=== PATIENT | female | born 1945 | race Caucasian/White ===

== ENCOUNTER 2019-02-14 06:36 | Day surgery (SDC) | payer MEDICARE, OTHER ==
[2019-02-14] MEDS ORDERED: fentaNYL 100 MCG/2 ML SDV ONE (07:53)
[2019-02-14] MEDS ORDERED: Propofol 200 MG/20 ML SDV ONE (07:53)
[2019-02-14] MEDS ORDERED: Midazolam 1 MG/ML 2 ML SDV ONE (07:53)
[2019-02-14] MEDS ORDERED: Sodium Chloride 0.9% 1,000 ML IV SCH (08:00)
[2019-02-14] MEDS ORDERED: Glycopyrrolate 0.2 MG/ML 2 ML SDV ONE (08:12)
--- NOTE | 2019-02-14 14:02 | OR ---
DATE OF PROCEDURE: 02/14/2019 SURGEON: Joaquín Choi MD PROCEDURE: Colonoscopy. FINDINGS: 1. Descending colon polyp, approximately 5 mm, completely removed using hot snare. 2. Diverticulosis, mild, limited to sigmoid colon. COMPLICATIONS: None. 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 ANESTHESIA: MAC. RISKS: Risks, benefits, alternatives, and limitations including, but not limited to infection, bleeding, and perforation were explained to the patient and wished to proceed. PROCEDURE IN DETAIL: The patient was placed in left lateral decubitus position. Digital rectal exam was performed without abnormality. Scope was introduced and advanced atraumatically to the ileocecal valve. Scope was brought back through the ascending, transverse, descending colon, and retroflexed. Aforementioned polyp was identified and completely removed. No evidence of old or new blood. Diverticulosis described as mild and limited to the sigmoid colon only. No other abnormalities noted. The patient tolerated the procedure well. Joaquín Choi MD /[id number]
== END 2019-02-14 09:45 | disposition home or self-care (01) ==
LOC: JP.SDS 06:36
PROVIDERS: ATTEND Surgery
DX: Z12.11 Encounter for screening for malignant neoplasm of colon (principal); K63.5 Polyp of colon; K57.30 Diverticulosis of large intestine without perforation or abscess without bleeding; K21.9 Gastro-esophageal reflux disease without esophagitis; E78.5 Hyperlipidemia, unspecified; E66.9 Obesity, unspecified; G47.33 Obstructive sleep apnea (adult) (pediatric); Z99.89 Dependence on other enabling machines and devices; Z87.891 Personal history of nicotine dependence; Z68.30 Body mass index [BMI] 30.0-30.9, adult
CPT/HCPCS: 45385; J2250; J2704; J3010; J3490; J7030; 88305